=== PATIENT | male | born 1965 | race Caucasian/White ===

== ENCOUNTER 2018-11-05 18:45 | Emergency (ER) | payer BC ==
[2018-11-05] MEDS ORDERED: Sodium Chloride 0.9% 1,000 ML IV ONE ×2 (18:50→19:56)
[2018-11-05] MEDS ORDERED: Diltiazem 25 MG/5 ML SDV IVPUSH ONE (18:54)
--- NOTE | 2018-11-05 18:57 | EDM.PDOC ---
ED HPI GENERAL MEDICAL PROBLEM - General Chief Complaint: Cardiovascular Problem Stated Complaint: CHEST TIGHTNESS Time Seen by Provider: 11/05/18 18:54 Source of Information: Reports: Patient History Limitations: Reports: No Limitations - History of Present Illness INITIAL COMMENTS - FREE TEXT/NARRATIVE: HISTORY AND PHYSICAL: History of present illness: Patient is a 53-year-old male who presents to the emergency room today with complaints of irregular heart rate. He states that he was diagnosed with atrial fibrillation approximately for 5 years ago which did result in a stroke. He states that he had a significant weight loss after this incident, followed by gastric bypass. He states he stopped taking any anti-arrhythmia medications. " My doctors aware... But I think I was supposed to be taking those". States he was taking Coumadin but has not taken this in 2-3 years. He currently takes medications for type 2 diabetes and hypertension. Patient reports that he felt his heart racing on Friday. He felt dizzy and near syncopal, had gone home to rest. He missed work on Friday, but did not have any symptoms. This evening symptoms have returned. He again felt dizzy and near syncopal. He denies any fever, chills, chest pain, shortness of breath or cough. Denies any abdominal pain, nausea, vomiting, diarrhea, constipation or dysuria. He has been able to eat and drink appropriately. Review of systems: As per history of present illness and below otherwise all systems reviewed and negative. Past medical history: As per history of present illness and as reviewed below otherwise noncontributory. Surgical history: As per history of present illness and as reviewed below otherwise noncontributory. Social history: See social history for further information Family history: As per history of present illness and as reviewed below otherwise noncontributory. Physical exam: General: Well developed and well nourished 53-year-old male. Alert and oriented. Nontoxic appearing and in no acute distress. HEENT: Atraumatic, normocephalic, pupils equal and reactive bilaterally, negative for conjunctival pallor or scleral icterus, mucous membranes moist, TMs normal bilaterally, throat clear, neck supple, nontender, trachea midline. No drooling or trismus noted. No meningeal signs. No hot potato voice noted. Lungs: Clear to auscultation, breath sounds equal bilaterally, chest nontender. Heart: Irregular rate and rhythm Abdomen: Soft, nondistended, nontender. Negative for masses or hepatosplenomegaly. Negative for costovertebral tenderness. Pelvis: Stable nontender. Genitourinary: Deferred. Rectal: Deferred. Skin: Intact, warm, dry. No lesions or rashes noted. Extremities: Atraumatic, moves all per self, negative for cords or calf pain. Neurovascular unremarkable. Neuro: Awake, alert, oriented. Cranial nerves II through XII unremarkable. Cerebellum unremarkable. Motor and sensory unremarkable throughout. Exam nonfocal. Notes: Cardizem was given and patient's rate ranges 90-150's. Patient's troponin is 0.258 (H). This information was shared with the patient. Unfortunately we currently have no beds available. Patient will need to be transferred to the closest facility, [place] in [place] for continued evaluation and monitoring. Patient was made aware of this. He is hesitant as he states he would prefer to drive himself there. He is aware of the risks of this. He will be transferred via ground EMS. Dr Wilkins, [facility] MD, was consulted on this patient and is agreeable to accepting this patient. Diagnostics: CBC, CMP, troponin, PT/INR, chest x-ray, EKG Therapeutics: IV fluid, Cardizem IV, Lovenox Impression: Atrial Fibrillation Elevated Troponin Medication noncompliance Plan: Transfer to [place] via ground EMS Definitive disposition and diagnosis as appropriate pending reevaluation and review of above. - Related Data Allergies Allergy/AdvReac Type Severity Reaction Status Date / Time No Known Allergies Allergy Verified 03/22/14 07:53 Home Meds: Home Meds Lisinopril 40 mg PO DAILY 03/22/14 [History] metFORMIN [metFORMIN XR] 500 mg PO BID 03/22/14 [History] Metoprolol Succinate 50 mg PO DAILY 06/01/14 [History] Aspirin 81 mg PO DAILY 11/05/18 [History] amLODIPine [Norvasc] 2.5 mg PO DAILY 11/05/18 [History] atorvaSTATin [Lipitor] 20 mg PO BEDTIME 11/05/18 [History] ED ROS GENERAL - Review of Systems Review Of Systems: ROS reveals no pertinent complaints other than HPI. ED EXAM, GENERAL - Physical Exam Exam: See Below (See dictation) Course - Vital Signs Last Recorded V/S: Last Vital Signs Temp 97.8 F 11/05/18 18:45 Pulse 180 H 11/05/18 19:41 Resp 16 11/05/18 19:41 BP 101/76 11/05/18 19:41 Pulse Ox 96 11/05/18 19:41 - Orders/Labs/Meds Orders: Active Orders 24 hr Category Date Time Status EKG Documentation Completion [RC] STAT Care 11/05/18 18:50 Active EKG Documentation Completion [RC] STAT Care 11/05/18 19:57 Active Sodium Chloride 0.9% [Normal Saline] 1,000 ml Med 11/05/18 19:56 Active IV STAT Medication Orders Sodium Chloride (Normal Saline) 1,000 mls @ 999 mls/hr IV STAT ONE Stop: 11/05/18 20:56 Labs: Laboratory Tests 11/05/18 11/05/18 11/05/18 Range/Units 19:10 19:10 19:10 WBC 10.16 (4.0-11.0) K/uL RBC 5.37 (4.50-5.90) M/uL Hgb 14.4 (13.0-17.0) g/dL Hct 43.6 (38.0-50.0) % MCV 81.2 (80.0-98.0) fL MCH 26.8 L (27.0-32.0) pg MCHC 33.0 (31.0-37.0) g/dL RDW Std Deviation 40.7 (28.0-62.0) fl RDW Coeff of Cecille 14 (11.0-15.0) % Plt Count 268 (150-400) K/uL MPV 10.10 (7.40-12.00) fL Neut % (Auto) 50.0 (48.0-80.0) % Lymph % (Auto) 37.1 (16.0-40.0) % [place] % (Auto) 9.4 (0.0-15.0) % Eos % (Auto) 3.1 (0.0-7.0) % Baso % (Auto) 0.4 (0.0-1.5) % Neut # (Auto) 5.1 (1.4-5.7) K/uL Lymph # (Auto) 3.8 H (0.6-2.4) K/uL [place] # (Auto) 1.0 H (0.0-0.8) K/uL Eos # (Auto) 0.3 (0.0-0.7) K/uL Baso # (Auto) 0.0 (0.0-0.1) K/uL Nucleated RBC % 0.0 /100WBC Nucleated RBCs # 0 K/uL INR 1.05 Sodium 142 (136-148) mmol/L Potassium 3.9 (3.5-5.1) mmol/L Chloride 106 (98-107) mmol/L Carbon Dioxide 27.0 (21.0-32.0) mmol/L BUN 25 H (7.0-18.0) mg/dL Creatinine 1.4 H (0.8-1.3) mg/dL Est Cr Clr Drug Dosing TNP Estimated GFR (MDRD) 52.8 ml/min Glucose 117 H (74-106) mg/dL Calcium 9.1 (8.5-10.1) mg/dL Total Bilirubin 0.3 (0.2-1.0) mg/dL AST 20 (15-37) IU/L ALT 34 (14-63) IU/L Alkaline Phosphatase 59 (46-116) U/L Troponin I 0.258 H* (0.000-0.056) ng/mL Total Protein 7.2 (6.4-8.2) g/dL Albumin 3.9 (3.4-5.0) g/dL Globulin 3.3 (2.6-4.0) g/dL Albumin/Globulin Ratio 1.2 (0.9-1.6) Meds: Medications Generic Name Dose Route Start Last Admin Trade Name Freq PRN Reason Stop Dose Admin Sodium Chloride 1,000 mls @ 999 mls/hr 11/05/18 19:56 Normal Saline IV 11/05/18 20:56 STAT ONE Discontinued Medications Generic Name Dose Route Start Last Admin Trade Name Freq PRN Reason Stop Dose Admin Aspirin 324 mg 11/05/18 19:46 Aspirin PO 11/05/18 19:47 ONETIME ONE Diltiazem HCl 20 mg 11/05/18 18:54 11/05/18 19:36 Diltiazem IVPUSH 11/05/18 18:55 20 mg ONETIME ONE Administration Enoxaparin Sodium 100 mg 11/05/18 19:56 Lovenox SUBCUT 11/05/18 19:57 ONETIME ONE Sodium Chloride 1,000 mls @ 999 mls/hr 11/05/18 18:50 11/05/18 19:35 Normal Saline IV 11/05/18 19:50 999 mls/hr STAT ONE Administration Departure - Departure Time of Disposition: 20:03 Disposition: DC/Tfer to Acute Hospital 02 Reason for Transfer *Q: Other (On diversion and cardiology referral) Clinical Impression: Atrial fibrillation with RVR, Elevated troponin, Noncompliance with medication regimen Forms: ED Department Discharge - My Orders Last 24 Hours: My Active Orders 11/05/18 18:50 EKG Documentation Completion [RC] STAT 11/05/18 19:56 Sodium Chloride 0.9% [Normal Saline] 1,000 ml IV STAT 11/05/18 19:57 EKG Documentation Completion [RC] STAT - Assessment/Plan Last 24 Hours: My Active Orders 11/05/18 18:50 EKG Documentation Completion [RC] STAT 11/05/18 19:56 Sodium Chloride 0.9% [Normal Saline] 1,000 ml IV STAT 11/05/18 19:57 EKG Documentation Completion [RC] STAT
[2018-11-05 19:40] LABS: CHLORIDE,CL 106 mmol/L (98-107); SODIUM,NA 142 mmol/L (136-148)
--- NOTE | 2018-11-05 19:40 | CR ---
INDICATION: chest pain TECHNIQUE: Chest 1 view. COMPARISON: None. FINDINGS: Cardiovascular and mediastinum: Heart size and vasculature are normal in caliber and appearance. Mediastinum is within normal limits. Lungs and pleural space: Lungs are clear. No sign of infiltrate or mass. No sign of pleural effusion. No pneumothorax. Bones and soft tissues: No significant findings. IMPRESSION: Unremarkable chest. Dictated by: Amanuel Edmond MD @ 11/05/2018 19:40:05 (Electronically Signed)
[2018-11-05] MEDS ORDERED: Aspirin 81 MG Tab.Chew PO ONE (19:46)
[2018-11-05] MEDS ORDERED: Enoxaparin 100 MG/1 ML Syringe SUBCUT ONE (19:56)
== END 2018-11-05 20:39 ==
LOC: MW.ED 18:45
DX: I48.91 Unspecified atrial fibrillation (principal); R79.89 Other specified abnormal findings of blood chemistry; Z91.14 Patient's other noncompliance with medication regimen; E11.9 Type 2 diabetes mellitus without complications; I10 Essential (primary) hypertension; Z79.84 Long term (current) use of oral hypoglycemic drugs; Z79.899 Other long term (current) drug therapy; Z79.82 Long term (current) use of aspirin
CPT/HCPCS: 36415; 71045; 80053; 84484; 85025; 85610; 93005; 96361; 96372; 96374; 99285; A9270; J1650; J3490; J7040